=== PATIENT | male | born 1975 | race Caucasian/White ===

== ENCOUNTER 2016-04-06 18:57 | Inpatient (IN) | payer MEDICAID ==
[2016-04-06] MEDS ORDERED: IPRATROPIUM/ALBUTEROL 3 ML NEB INH ONE (19:16)
[2016-04-06] MEDS ORDERED: IPRATROPIUM/ALBUTEROL 3 ML NEB INH STA (19:24)
[2016-04-06] MEDS ORDERED: ALBUTEROL NEB 2.5 MG/3 ML INH STA (19:24)
[2016-04-06] MEDS ORDERED: ALBUTEROL NEB 2.5 MG/3 ML INH ONE (19:37)
[2016-04-06] MEDS ORDERED: cefTRIAXone 1 GM in SODIUM CHLORIDE 0.9% MINIBAG 100 ML IV STA (19:42)
[2016-04-06] MEDS ORDERED: cefTRIAXone 1 GM VIAL ONE (20:00)
[2016-04-06] MEDS ORDERED: MORPHINE 2 MG/ML SYRINGE IVP PRN (20:47)
[2016-04-06] MEDS ORDERED: ACETAMINOPHEN 325 MG TABLET PO PRN (20:47)
[2016-04-06] MEDS ORDERED: HYDROcod/ACETAM 5/325 MG TABLET PO PRN (20:47)
[2016-04-06] MEDS ORDERED: ONDANSETRON 4 MG/2 ML VIAL IVP PRN (20:47)
[2016-04-06] MEDS: INSULIN ASPART 300 UNIT/3 ML PEN SUBQ SCH (22:10)
[2016-04-06] MEDS: SODIUM CHLORIDE FLUSH 0.9% 10 ML SYRINGE IVP SCH (22:11)
[2016-04-06] MEDS: IPRATROPIUM/ALBUTEROL 3 ML NEB INH SCH (22:13)
[2016-04-07] MEDS: IPRATROPIUM/ALBUTEROL 3 ML NEB INH SCH ×3 (04:24→09:37)
[2016-04-07] MEDS: SODIUM CHLORIDE FLUSH 0.9% 10 ML SYRINGE IVP SCH ×3 (06:15→21:20)
[2016-04-07] MEDS: PANTOPRAZOLE 40 MG VIAL IVP SCH ×2 (06:15→16:53)
[2016-04-07] MEDS: methylPREDNISolone SUCCINATE 40 MG/ML VIAL IVP SCH ×4 (06:15→21:16)
[2016-04-07] MEDS: INSULIN ASPART 300 UNIT/3 ML PEN SUBQ SCH ×4 (09:07→21:17)
[2016-04-07] MEDS: NICOTINE 21 MG PATCH TOP SCH (09:08)
[2016-04-07] MEDS: ENOXAPARIN 40 MG/0.4 ML SYRINGE SUBQ SCH (09:08)
[2016-04-07] MEDS: SERTRALINE 50 MG TABLET PO SCH (09:09)
[2016-04-07] MEDS: POLYETHYLENE GLYCOL 3350 17 GM PACKET PO SCH (09:09)
[2016-04-07] MEDS: DOXYCYCLINE 100 MG TABLET PO SCH ×2 (09:10→21:16)
[2016-04-07] MEDS: SODIUM CHLORIDE 0.9% 1,000 ML IV SCH ×2 (09:25→17:05)
[2016-04-07] MEDS ORDERED: MAGNESIUM SULFATE 2 GM in SODIUM CHLORIDE 0.9% 50 ML IV ONE (11:50)
[2016-04-07] MEDS ORDERED: MAGNESIUM SULFATE 2 GRAM 50 ML IV ONE (12:00)
[2016-04-07] MEDS ORDERED: DEXTROSE GEL 37.5 GM TUBE PO PRN ×2 (12:32→12:34)
[2016-04-07] MEDS ORDERED: DEXTROSE 5% 1,000 ML IV PRN ×2 (12:32→12:34)
[2016-04-07] MEDS ORDERED: DEXTROSE 50% ABBOJECT 25 GM/50 ML SYRINGE IVP PRN ×2 (12:32→12:34)
[2016-04-07] MEDS ORDERED: GLUCAGON 1 MG/ML VIAL SUBQ PRN ×2 (12:32→12:34)
[2016-04-07] MEDS: SODIUM CHLORIDE FLUSH 0.9% 10 ML SYRINGE IVP PRN ×2 (12:53→16:54)
[2016-04-07] MEDS ORDERED: SODIUM CHLORIDE INHALATION 3 ML NEB ONE ×2 (13:17→16:35)
[2016-04-07] MEDS: LEVALBUTEROL 1.25 MG INH SCH ×4 (13:20→20:37)
[2016-04-07] MEDS ORDERED: LEVALBUTEROL 1.25 MG INH PRN (17:16)
[2016-04-08] MEDS: SODIUM CHLORIDE 0.9% 1,000 ML IV SCH ×3 (01:23→21:45)
[2016-04-08] MEDS: LEVALBUTEROL 1.25 MG INH SCH ×5 (01:57→19:54)
[2016-04-08] MEDS: PANTOPRAZOLE 40 MG VIAL IVP SCH ×2 (06:28→16:16)
[2016-04-08] MEDS: SODIUM CHLORIDE FLUSH 0.9% 10 ML SYRINGE IVP SCH ×3 (06:29→21:37)
[2016-04-08] MEDS: INSULIN ASPART 300 UNIT/3 ML PEN SUBQ SCH ×4 (08:21→21:43)
[2016-04-08] MEDS: ENOXAPARIN 40 MG/0.4 ML SYRINGE SUBQ SCH (08:22)
[2016-04-08] MEDS: NICOTINE 21 MG PATCH TOP SCH (08:22)
[2016-04-08] MEDS: DOXYCYCLINE 100 MG TABLET PO SCH ×2 (08:23→21:36)
[2016-04-08] MEDS: SERTRALINE 50 MG TABLET PO SCH (08:23)
[2016-04-08] MEDS: POLYETHYLENE GLYCOL 3350 17 GM PACKET PO SCH (08:25)
[2016-04-08] MEDS: methylPREDNISolone SUCCINATE 40 MG/ML VIAL IVP SCH ×3 (08:25→21:37)
[2016-04-08] MEDS ORDERED: SODIUM CHLORIDE INHALATION 3 ML NEB ONE ×2 (08:37→13:32)
[2016-04-08] MEDS: SODIUM CHLORIDE FLUSH 0.9% 10 ML SYRINGE IVP PRN (16:16)
[2016-04-08] MEDS ORDERED: LEVALBUTEROL 1.25 MG INH PRN (17:04)
[2016-04-09] MEDS: methylPREDNISolone SUCCINATE 40 MG/ML VIAL IVP SCH ×3 (06:12→22:39)
[2016-04-09] MEDS: SODIUM CHLORIDE FLUSH 0.9% 10 ML SYRINGE IVP SCH ×3 (06:16→22:29)
[2016-04-09] MEDS: PANTOPRAZOLE 40 MG VIAL IVP SCH ×2 (06:16→15:46)
[2016-04-09] MEDS ORDERED: SODIUM CHLORIDE INHALATION 3 ML NEB ONE ×2 (07:27→12:37)
[2016-04-09] MEDS: LEVALBUTEROL 1.25 MG INH SCH ×4 (08:05→23:40)
[2016-04-09] MEDS: INSULIN ASPART 300 UNIT/3 ML PEN SUBQ SCH ×4 (08:33→22:29)
[2016-04-09] MEDS: INSULIN REGULAR HUMAN 100 UNIT/1 ML 10 ML MDV SUBQ SCH ×3 (09:38→22:30)
[2016-04-09] MEDS: SERTRALINE 50 MG TABLET PO SCH (09:39)
[2016-04-09] MEDS: ENOXAPARIN 40 MG/0.4 ML SYRINGE SUBQ SCH (09:39)
[2016-04-09] MEDS: DOXYCYCLINE 100 MG TABLET PO SCH ×2 (09:39→22:30)
[2016-04-09] MEDS: NICOTINE 21 MG PATCH TOP SCH (12:05)
[2016-04-09] MEDS: POLYETHYLENE GLYCOL 3350 17 GM PACKET PO SCH (12:05)
[2016-04-09] MEDS: SODIUM CHLORIDE FLUSH 0.9% 10 ML SYRINGE IVP PRN (15:46)
[2016-04-10] MEDS ORDERED: SODIUM CHLORIDE INHALATION 3 ML NEB ONE ×3 (02:00→13:03)
[2016-04-10] MEDS: SODIUM CHLORIDE FLUSH 0.9% 10 ML SYRINGE IVP PRN (06:17)
[2016-04-10] MEDS: SODIUM CHLORIDE FLUSH 0.9% 10 ML SYRINGE IVP SCH ×3 (06:17→21:56)
[2016-04-10] MEDS: PANTOPRAZOLE 40 MG VIAL IVP SCH ×2 (06:17→19:36)
[2016-04-10] MEDS: INSULIN ASPART 300 UNIT/3 ML PEN SUBQ SCH ×4 (08:10→21:54)
[2016-04-10] MEDS: LEVALBUTEROL 1.25 MG INH SCH ×4 (09:23→21:49)
[2016-04-10] MEDS: INSULIN GLARGINE 300 UNIT/3 ML PEN SUBQ SCH ×3 (09:54→22:02)
[2016-04-10] MEDS: methylPREDNISolone SUCCINATE 40 MG/ML VIAL IVP SCH ×2 (09:55→21:53)
[2016-04-10] MEDS: DOXYCYCLINE 100 MG TABLET PO SCH ×2 (09:55→21:56)
[2016-04-10] MEDS: SERTRALINE 50 MG TABLET PO SCH (09:56)
[2016-04-10] MEDS: ENOXAPARIN 40 MG/0.4 ML SYRINGE SUBQ SCH (09:56)
[2016-04-10] MEDS: NICOTINE 21 MG PATCH TOP SCH (09:56)
[2016-04-10] MEDS: POLYETHYLENE GLYCOL 3350 17 GM PACKET PO SCH (09:57)
[2016-04-10] MEDS: SODIUM CHLORIDE INHALATION 3 ML NEB ONE (21:50)
[2016-04-11] MEDS: PANTOPRAZOLE 40 MG VIAL IVP SCH ×2 (06:02→16:23)
[2016-04-11] MEDS: SODIUM CHLORIDE FLUSH 0.9% 10 ML SYRINGE IVP SCH ×3 (06:03→21:20)
[2016-04-11] MEDS: SODIUM CHLORIDE FLUSH 0.9% 10 ML SYRINGE IVP PRN ×2 (06:03→16:24)
[2016-04-11] MEDS: INSULIN ASPART 300 UNIT/3 ML PEN SUBQ SCH ×6 (08:16→21:18)
[2016-04-11] MEDS: POLYETHYLENE GLYCOL 3350 17 GM PACKET PO SCH (08:17)
[2016-04-11] MEDS: DOXYCYCLINE 100 MG TABLET PO SCH ×2 (08:18→21:17)
[2016-04-11] MEDS: SERTRALINE 50 MG TABLET PO SCH (08:18)
[2016-04-11] MEDS: ENOXAPARIN 40 MG/0.4 ML SYRINGE SUBQ SCH (08:19)
[2016-04-11] MEDS: methylPREDNISolone SUCCINATE 40 MG/ML VIAL IVP SCH ×2 (08:20→21:20)
[2016-04-11] MEDS: NICOTINE 21 MG PATCH TOP SCH (08:23)
[2016-04-11] MEDS ORDERED: SODIUM CHLORIDE INHALATION 3 ML NEB ONE ×2 (10:23→19:59)
[2016-04-11] MEDS ORDERED: SERTRALINE 50 MG TABLET PO SCH (10:30)
[2016-04-11] MEDS: SODIUM CHLORIDE INHALATION 3 ML NEB ONE (10:30)
[2016-04-11] MEDS: LEVALBUTEROL 1.25 MG INH SCH ×2 (10:30→20:20)
[2016-04-11] MEDS ORDERED: SERTRALINE 50 MG TABLET PO ONE ×2 (11:00→13:00)
[2016-04-11] MEDS ORDERED: INSULIN GLARGINE 300 UNIT/3 ML PEN SUBQ SCH (21:00)
[2016-04-11] MEDS: INSULIN GLARGINE 300 UNIT/3 ML PEN SUBQ SCH (21:18)
[2016-04-12] MEDS: SODIUM CHLORIDE FLUSH 0.9% 10 ML SYRINGE IVP PRN ×2 (06:05→09:10)
[2016-04-12] MEDS: PANTOPRAZOLE 40 MG VIAL IVP SCH ×2 (06:05→17:01)
[2016-04-12] MEDS: SODIUM CHLORIDE FLUSH 0.9% 10 ML SYRINGE IVP SCH ×3 (06:05→21:04)
[2016-04-12] MEDS: INSULIN ASPART 300 UNIT/3 ML PEN SUBQ SCH ×7 (09:05→21:04)
[2016-04-12] MEDS: DOXYCYCLINE 100 MG TABLET PO SCH ×2 (09:07→20:57)
[2016-04-12] MEDS: methylPREDNISolone SUCCINATE 40 MG/ML VIAL IVP SCH ×2 (09:07→20:57)
[2016-04-12] MEDS: ENOXAPARIN 40 MG/0.4 ML SYRINGE SUBQ SCH (09:07)
[2016-04-12] MEDS: INSULIN GLARGINE 300 UNIT/3 ML PEN SUBQ SCH ×2 (09:08→21:02)
[2016-04-12] MEDS: POLYETHYLENE GLYCOL 3350 17 GM PACKET PO SCH (09:09)
[2016-04-12] MEDS: SERTRALINE 50 MG TABLET PO SCH (09:09)
[2016-04-12] MEDS: NICOTINE 21 MG PATCH TOP SCH (09:09)
[2016-04-12] MEDS: CALCIUM CARBONATE CHEW 500 MG TABLET PO SCH ×2 (10:27→20:57)
[2016-04-12] MEDS: CHOLECALCIFEROL 1,000 UNIT TABLET PO SCH (10:27)
[2016-04-12] MEDS: LEVALBUTEROL 1.25 MG INH SCH ×2 (21:02→23:07)
[2016-04-13] MEDS: SODIUM CHLORIDE FLUSH 0.9% 10 ML SYRINGE IVP SCH (06:23)
[2016-04-13] MEDS: PANTOPRAZOLE 40 MG VIAL IVP SCH (06:23)
[2016-04-13] MEDS: LEVALBUTEROL 1.25 MG INH SCH ×4 (07:10→11:00)
[2016-04-13] MEDS: SODIUM CHLORIDE INHALATION 3 ML NEB ONE (07:15)
[2016-04-13] MEDS: INSULIN ASPART 300 UNIT/3 ML PEN SUBQ SCH ×4 (07:34→11:36)
[2016-04-13] MEDS: CHOLECALCIFEROL 1,000 UNIT TABLET PO SCH (07:34)
[2016-04-13] MEDS: CALCIUM CARBONATE CHEW 500 MG TABLET PO SCH (07:34)
[2016-04-13] MEDS: DOXYCYCLINE 100 MG TABLET PO SCH (07:34)
[2016-04-13] MEDS ORDERED: predniSONE 20 MG TABLET PO SCH (09:00)
[2016-04-13] MEDS: SERTRALINE 50 MG TABLET PO SCH (09:54)
[2016-04-13] MEDS: INSULIN GLARGINE 300 UNIT/3 ML PEN SUBQ SCH (09:55)
[2016-04-13] MEDS: ENOXAPARIN 40 MG/0.4 ML SYRINGE SUBQ SCH (09:56)
[2016-04-13] MEDS: NICOTINE 21 MG PATCH TOP SCH (09:56)
[2016-04-13] MEDS: POLYETHYLENE GLYCOL 3350 17 GM PACKET PO SCH (09:57)
== END 2016-04-13 12:58 | disposition home or self-care (01) | DRG 189 ==
DX: J96.01 Acute respiratory failure with hypoxia (principal); J44.1 Chronic obstructive pulmonary disease with (acute) exacerbation; J45.901 Unspecified asthma with (acute) exacerbation; E87.4 Mixed disorder of acid-base balance; R65.10 Systemic inflammatory response syndrome (SIRS) of non-infectious origin without acute organ dysfunction; J96.02 Acute respiratory failure with hypercapnia; T38.0X5A Adverse effect of glucocorticoids and synthetic analogues, initial encounter; Z91.14 Patient's other noncompliance with medication regimen; K21.9 Gastro-esophageal reflux disease without esophagitis; F32.9 Major depressive disorder, single episode, unspecified; F17.200 Nicotine dependence, unspecified, uncomplicated; F41.9 Anxiety disorder, unspecified; E10.65 Type 1 diabetes mellitus with hyperglycemia